=== PATIENT | male | born 1955 | race Caucasian/White ===

== ENCOUNTER 2023-06-24 13:19 | Day surgery (SDC) | payer MEDICARE, OTHER ==
[~2023-06-24] VITALS: Ht 185.4 cm; Wt 101.9 kg
[2023-06-24] MEDS ORDERED: EZET10 PO (14:54)
[2023-06-24] MEDS ORDERED: INSULIN LI100 UNIT/5 SC (14:58)
[2023-06-24] MEDS ORDERED: LISI20 PO (14:59)
[2023-06-24] MEDS ORDERED: MELO7.5 (14:59)
[2023-06-24] MEDS ORDERED: METO100ER PO (15:00)
[2023-06-24] MEDS ORDERED: METF500C (15:00)
[2023-06-24] MEDS ORDERED: OMEP20ER (15:01)
[2023-06-24] MEDS ORDERED: B-12500 MC1 SL (15:02)
[2023-06-24] MEDS ORDERED: VITAMIN D310 MC4 PO (15:03)
[2023-06-24] MEDS ORDERED: TOCO1000 PO (15:04)
[2023-06-24] MEDS ORDERED: OMEGA-3 FISH O1 EA13 PO (15:05)
[2023-06-24 17:18] VITALS: BP 129/70
--- NOTE | 2023-06-24 17:26 | NUR ---
06/24/23 1726 DOMINIQUE CROUCH PT HAD 3 IV POKES - TWO IN THE RIGHT HAND/ ONE BLEW AND BLED UNDER SKIN. WARM PK APPLIED. SECOND IV IN RIGHT HAND WAS PATENT AND FLOWING GOOD IN PRE OP BUT FAILED TO WORK DESPITE ATTEMPT TO FLUSH. NEW IV STARTED IN LEFT HAND IN PROCEDURE ROOM. PATENT AND FLOWING WELL
== END 2023-06-24 16:57 | disposition home or self-care (01) ==
LOC: ORSCSDS 13:19
PROVIDERS: Internal Medicine Gastroenterology
PROC: 0DBK8ZX Excision of Ascending Colon, Via Natural or Artificial Opening Endoscopic, Diagnostic (ICD-10-PCS; principal; 2023-06-24 14:45)
PROC: 0DBM8ZX Excision of Descending Colon, Via Natural or Artificial Opening Endoscopic, Diagnostic (ICD-10-PCS; principal; 2023-06-24 14:45)
DX: Z12.11 Encounter for screening for malignant neoplasm of colon (principal); Z80.0 Family history of malignant neoplasm of digestive organs; D12.2 Benign neoplasm of ascending colon; D12.4 Benign neoplasm of descending colon; K57.30 Diverticulosis of large intestine without perforation or abscess without bleeding; K64.8 Other hemorrhoids; Z79.84 Long term (current) use of oral hypoglycemic drugs; Z79.4 Long term (current) use of insulin; I12.9 Hypertensive chronic kidney disease with stage 1 through stage 4 chronic kidney disease, or unspecified chronic kidney disease; N18.30 Chronic kidney disease, stage 3 unspecified; Z79.899 Other long term (current) drug therapy
CPT/HCPCS: 82947; 88305; J2704; J7120